=== PATIENT | female | born 1935 | race Caucasian/White ===

== ENCOUNTER 2016-07-24 16:57 | Emergency (ER) | payer MEDICARE ==
[~2016-07-24] VITALS: Ht 160 cm; Wt 50.0 kg
[~2016-07-24 16:57] MED LIST: ALPR1 PO; GLIP5 PO; LISI2.5T3 PO; POTA-243 PO; SYNT25TA PO
[2016-07-24 17:03] VITALS: BP 159/78; PULSE 108; RESP 18; TEMP 98.3; O2SAT 97
--- NOTE | 2016-07-24 17:21 | PD ---
HPI . hip pain Chief Complaint: Pain: Acute or Chronic Time Seen by Provider: 17:21 Travel History International Travel<30 days: No Contact w/Intl Traveler<30days: No Traveled to known affect area: No History of Present Illness HPI 80 yr old female with HTN, HLD, DM, anxiety, and hypothyroidism here with complaints of left-sided hip pain. Patient has had over one year worth of hip pain and sees Dr. Arce for it. She tells me that she takes Lortab regularly and has recently "chewed" them up. She tells me that she is experiencing 10 out of 10 pain in the left hip without radiation. She denies any recent falls. Of note she does have orthopedic appointment tomorrow morning. She is accompanied by her roommate Shnu. She denies any cp, nausea, vomiting, sob, or abdominal pain. 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, DR TOLD HER IT WOULDNT OBSTRUCT) Musculoskeletal: Yes (CHRONIC BACK PAIN) Neurologic: No Psychiatric: Yes Reproductive: No Respiratory: No Migraines: No Myocardial Infarction: No Radiation Therapy: No Renal Failure: No Seizures: No Sickle Cell Disease: No Sleep Apnea: No Thyroid Disease: No Ulcer: No PNEUMOCCOCAL Vaccine (Year): 1 Menopausal: Yes : 1 Miscarriage: 1 Past Surgical History Abdominal Surgery: No AICD: No Appendectomy: No Arteriovenous Shunt: No Body Medical Devices: unable to assess; patient confused; AMS Cardiac Surgery: No Section: Yes (X 1) Cholecystectomy: No Ear Surgery: No Endocrine Surgery: No Eye Surgery: No Genitourinary Surgery: No Gynecologic Surgery: Yes ( HYSTERECTOMY) Hysterectomy: Yes Insulin Pump: No Joint Replacement: No Neurologic Surgery: Yes (CERVICAL FUSION) Oral Surgery: No Pacemaker: No Thoracic Surgery: Yes (CERVICAL FUSION) Other Surgery: Yes (HYSTERCTOMY ) Social History Alcohol Use: No Tobacco Use: Yes (1 PPD) Substance Use: No Allergies-Medications (Allergen,Severity, Reaction): Coded Allergies: Codeine (Verified Allergy, Severe, 09/09/12) Bactrim (Verified Adverse Reaction, Severe, Nausea/Vomiting, 09/09/12) Reported Meds & Prescriptions Reported Meds & Active Scripts Active Reported Levothyroxine (Levothyroxine Sodium) 25 Mcg Tab 25 Mcg PO DAILY Lisinopril-Hctz 20-25 Mg Tab 1 Tab PO DAILY Alprazolam 1 Mg Tab 1 Mg PO HS Glipizide 5 Mg Tab 2.5 Mg PO BID Take 30 minutes before a meal Review of Systems General / Constitutional: No: Fever Eyes: No: Visual changes HENT: No: Headaches Cardiovascular: No: Chest Pain or Discomfort Respiratory: No: Shortness of Breath Gastrointestinal: No: Abdominal Pain Genitourinary: No: Dysuria Musculoskeletal: Positive: Pain (left hip pain) Skin: No Rash Neurologic: No: Weakness Psychiatric: No: Depression Endocrine: No: Polydipsia Hematologic/Lymphatic: No: Easy Bruising Physical Exam Narrative GENERAL: AAO x 3, no acute distress, Well-nourished, well-developed patient. SKIN: Warm and dry. No visible rashes or bruising. HEAD: Normocephalic and atraumatic. EYES: No scleral icterus. No injection or drainage. EOM intact, PERRLA ENT: No nasal drainage noted. Mucous membranes pink. Airway patent. NECK: Supple, trachea midline. No JVD. CARDIOVASCULAR: Regular rate and rhythm without murmurs, gallops, or rubs. RESPIRATORY: Breath sounds equal bilaterally. No accessory muscle use. No rhonchi or rales. GASTROINTESTINAL: Abdomen soft, non-tender, nondistended. EXTREMITIES: No cyanosis or edema. FULL ROM in bilateral hip/ no joint instability BACK: Nontender without obvious deformity. No CVA tenderness. PSYCH: AAO x 3, normal affect. Data Data Last Documented VS Vital Signs Date Time Temp Pulse Resp B/P Pulse Ox O2 Delivery O2 Flow Rate FiO2 07/24/16 17:08 106 16 07/24/16 17:03 98.3 159/78 97 Orders Tramadol (Ultram) (07/24/16 17:45) [facility] Medical Decision Making Medical Screen Exam Complete: Yes Emergency Medical Condition: Yes Medical Record Reviewed: Yes Differential Diagnosis acute on chronic hip pain, opioid dependence, less likely hip fracture, Narrative Course 80 yr old female with HTN, HLD, DM, anxiety, and hypothyroidism here with complaints of left-sided hip pain. Patient has had over one year worth of hip pain and sees Dr. Arce for it. She tells me that she takes Lortab regularly and has recently "chewed" them up. She tells me that she is experiencing 10 out of 10 pain in the left hip without radiation. She denies any recent falls. Of note she does have orthopedic appointment tomorrow morning. She is accompanied by her roommate Shun. She denies any cp, nausea, vomiting, sob, or abdominal pain. Patient seen and examined. Discussed with Dr. Colby. NO acute findings. NO bruising or signs of fracture. Normal ROM in left hip. EFORCSE: 07/17/16; filled 60 lortabs: patient states she "chewed" them up and took them around the clock. She is requesting something for pain. Tramadol in ED. Dr. Colby discussed with patient that we will treat her pain in ED. She is to f /u with ortho tomorrow. Patient verbalized understanding of instructions, questions were answered, and thanked me for their care. I advised them if their condition worsens, please return to the nearest emergency room for further care. Diagnosis Primary Impression: Chronic left hip pain Patient Instructions: General Instructions Additional Instructions: Follow up with your primary care provider. Discuss your pain with orthopedic tomorrow. Med/Other Pt SpecificInfo: No Change to Meds Disposition: 01 DISCHARGE HOME Condition: Stable April Hansen Jul 24, 2016 17:21
[2016-07-24] MEDS ORDERED: ALPR1TAB3 PO (17:41)
[2016-07-24] MEDS ORDERED: LEVO25TA4 PO (17:41)
[2016-07-24] MEDS ORDERED: GLIP5TAB8 PO (17:41)
[2016-07-24] MEDS ORDERED: LISI20TA3 PO (17:41)
[2016-07-24] MEDS ORDERED: traMADol HCL 50 MG TAB PO ONE (17:45)
[2016-07-24 17:54] VITALS: BP 152/87; PULSE 81; RESP 17; O2SAT 99
--- NOTE | 2016-07-24 19:25 | PD ---
Data Data Last Documented VS Vital Signs Date Time Temp Pulse Resp B/P Pulse Ox O2 Delivery O2 Flow Rate FiO2 07/24/16 17:54 81 17 152/87 99 Room Air 07/24/16 17:03 98.3 Orders Tramadol (Ultram) (07/24/16 17:45) MDM Supervised Visit with PETER: Yes Narrative Course The history, exam, and medical decision-making in the associated midlevel provider note were completed with my assistance. I reviewed and agree with the findings presented. I attest that I had a [id number] encounter with the patient on the same day, and personally performed and documented my assessment and findings in the medical record. *My assessment and Findings: This is an 80-year-old female who presents to the emergency department with chronic left hip pain. She is requesting pain medication. Her pain is unchanged from prior. She filled a hydrocodone prescription about 10 days ago which was a 30 day prescription and she says she' s taken at all. Patient was given a dose of tramadol and discharged home. Diagnosis Primary Impression: Chronic left hip pain Patient Instructions: General Instructions, Hip Pain (ED) Departure Forms: Tests/Procedures Additional Instruction: Follow up with your primary care provider. Discuss your pain with orthopedic tomorrow. Disposition: 01 DISCHARGE HOME Condition: Stable Tanya Colby MD Jul 24, 2016 19:25
== END 2016-07-24 18:15 | disposition home or self-care (01) ==
LOC: NEPC 16:57
DX: M25.552 Pain in left hip (principal); G89.29 Other chronic pain; M19.90 Unspecified osteoarthritis, unspecified site; J44.9 Chronic obstructive pulmonary disease, unspecified; E11.9 Type 2 diabetes mellitus without complications; Z79.84 Long term (current) use of oral hypoglycemic drugs; I10 Essential (primary) hypertension; F17.210 Nicotine dependence, cigarettes, uncomplicated
CPT/HCPCS: 99283

== ENCOUNTER 2017-09-13 22:05 | Inpatient (IN) | payer MEDICARE ==
[~2017-09-13] VITALS: Ht 162.6 cm; Wt 47.1 kg
[2017-09-13] VITALS (8 sets, daily range): BP systolic 76–115; BP diastolic 32–53; PULSE 82–96; RESP 18; TEMP 92–94; O2SAT 98–100
[~2017-09-13 22:05] MED LIST changes: -ALPR1 PO; +ALPR1TAB3 PO; -GLIP5 PO; +GLIP5TAB8 PO; +LEVO25TA4 PO; -LISI2.5T3 PO; +LISI20TA3 PO; -POTA-243 PO; -SYNT25TA PO
[2017-09-13] MEDS ORDERED: SODIUM CHLOR 0.9% 1000 ML INJ 1,000 ML IV ONE (22:30)
[2017-09-13] MEDS ORDERED: SODIUM CHLORIDE 0.9% FLUSH 10 ML FLUSH IVF PRN (22:30)
[2017-09-13 22:40] LABS: BASOPHIL % 0.5 % (0.0-2.0); EOSINOPHIL # 0.1 TH/MM3 (0-0.4); EOSINOPHIL % 0.9 % (0.0-4.0); LYMPH % 39.2 % (9.0-44.0); LYMPHOCYTE # 2.8 TH/MM3 (1.0-4.8); MEAN CELL VOLUME 104.9 FL (80.0-100.0); MEAN CORPUSCULAR HEMOGLOBIN 33.3 PG (27.0-34.0); MEAN CORPUSCULAR HGB CONC 31.7 % (32.0-36.0); MONO % 3.6 % (0.0-8.0); MONOCYTE # 0.3 TH/MM3 (0-0.9); NEUT % 55.8 % (16.0-70.0); PLATELET COUNT 193 TH/MM3 (150-450); RED BLOOD COUNT 1.25 MIL/MM3 (4.00-5.30); RED CELL DISTRIBUTION WIDTH 15.7 % (11.6-17.2); WHITE BLOOD COUNT 7.2 TH/MM3 (4.0-11.0)
[2017-09-13 22:49] LABS: HEMOGLOBIN 4.2 GM/DL (11.6-15.3)
[2017-09-13 22:50] LABS: HEMATOCRIT 13.1 % (35.0-46.0)
--- NOTE | 2017-09-13 22:54 | PD ---
HPI Chief Complaint: Code Blue Time Seen by Provider: 22:21 Travel History International Travel<30 days: No (Travel history is unable to be obtained) Contact w/Intl Traveler<30days: No History of Present Illness HPI The patient is an 82 year old female who presents to the [facility] emergency department with a history of altered mentation, shortness of breath that reportedly began 15-20 minutes prior to the arrival of ambulance services. When ambulance services arrived the patient was noted to have a GCS of 3 with a pulse in the 60s. Ambulance services reportedly did an EKG that they stated was unremarkable. The patient was noted to have O2 saturations of 82%. The patient then went into cardiopulmonary arrest. ACLS protocol was followed. The patient was noted to have a blood sugar of 85. The patient was given 2 doses of epinephrine in route to this facility while chest compressions were being provided. The patient was back in route to this facility. The patient on arrival is noted to be unresponsive with a GCS of 3. The patient's pupils are fixed and dilated. ACLS protocol was continued. The patient reportedly became pulseless at 22:00. Review of systems is unable to be obtained in this patient who arrives unresponsive. [facility] Past Medical History Narrative Medical The patient's past medical history is obtained from reviewing the patient's electronic medical record and consists of hypertension, hyperlipidemia, diabetes mellitus, anxiety disorder, hypothyroid disorder, chronic back pain, a kidney abnormality. 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 Abdominal Surgery: No AICD: No Appendectomy: No Arteriovenous Shunt: No Body Medical Devices: unable to assess; patient confused; AMS Cardiac Surgery: No Section: Yes (X 1) Cholecystectomy: No Ear Surgery: No Endocrine Surgery: No Eye Surgery: No Genitourinary Surgery: No Gynecologic Surgery: Yes ( HYSTERECTOMY) Hysterectomy: Yes Insulin Pump: No Joint Replacement: No Neurologic Surgery: Yes (CERVICAL FUSION) Oral Surgery: No Pacemaker: No Thoracic Surgery: Yes (CERVICAL FUSION) Other Surgery: Yes (HYSTERCTOMY ) Social History Alcohol Use: No Tobacco Use: Yes (1 PPD) Substance Use: No Allergies-Medications (Allergen,Severity, Reaction): Coded Allergies: codeine (Unverified Allergy, Severe, 09/13/17) sulfamethoxazole (Unverified Adverse Reaction, Severe, Nausea/Vomiting, ) trimethoprim (Unverified Adverse Reaction, Severe, Nausea/Vomiting, ) Reported Meds & Prescriptions Reported Meds & Active Scripts Active Reported Levothyroxine (Levothyroxine Sodium) 25 Mcg Tab 25 Mcg PO DAILY Lisinopril-Hctz 20-25 Mg Tab 1 Tab PO DAILY Alprazolam 1 Mg Tab 1 Mg PO HS Glipizide 5 Mg Tab 2.5 Mg PO BID Take 30 minutes before a meal Review of Systems ROS Limitations: Unresponsive Respiratory: Positive: Shortness of Breath Neurologic: Positive: Change in Mentation Physical Exam Narrative General: The patient is a well-developed, cachectic appearing female, unresponsive on arrival, pale-appearing with chest compressions being provided and being bagged by bag valve to mask Head and Neck exam: Head is normocephalic atraumatic. Eyes: extraocular motion testing is unable to be accomplished as the patient arrives unresponsive, pupils are fixed and dilated Nose: Midline septum with pale nasal mucosa Mouth: The patient had dentures in place prior to arrival that were removed and at the bedside. Moist mucus membranes. Posterior oropharynx is noted to have some bloody secretions. No tonsillar hypertrophy. Uvula midline. Airway patent. Neck: No palpable lymphadenopathy. No nuchal rigidity. No thyromegaly. Cardiovascular: No cardiac activity is auscultated. Lungs: Equal breath sounds bilaterally being assisted with bag valve mask. No wheezes, rhonchi, or rales. Abdomen: Soft, without tenderness to palpation in all 4 quadrants of the abdomen. No guarding, rebound, or rigidity. Extremities: No clubbing, cyanosis, or edema. The patient has an intraosseous access in place in the left tibia. Neurologic Exam: The patient arrives with a GCS of 3. Eyes 1. Motor 1. Verbal- 1. Skin Exam: No rash noted. Intact skin that is warm and dry. Data Data Last Documented VS Vital Signs Date Time Temp Pulse Resp B/P (MAP) Pulse Ox O2 Delivery O2 Flow Rate FiO2 09/13/17 23:25 92.8 92 18 105/50 (68) 98 Auto-Vent 09/13/17 22:10 100 Orders Orders I-Stat Profile (09/13/17 22:22) Complete Blood Count With Diff (09/13/17 22:22) Prothrombin Time / Inr (Pt) (09/13/17 22:22) Act Partial Throm Time (Ptt) (09/13/17 22:22) Type And Screen (09/13/17 22:22) Iv Access Insert/Monitor (09/13/17 22:22) Ecg Monitoring (09/13/17 22:22) Oximetry (09/13/17 22:22) Oxygen Administration (09/13/17 22:22) Sodium Chloride 0.9% Flush (Ns Flush) (09/13/17 22:30) Sodium Chlor 0.9% 1000 Ml Inj (Ns 1000 M (09/13/17 22:30) Comprehensive Metabolic Panel (09/13/17 22:26) Creatine Kinase (Cpk) (09/13/17 22:26) Ckmb (Isoenzyme) Profile (09/13/17 22:) Troponin I (09/13/17:) B-Type Natriuretic Peptide (09/13/17:) Urinalysis - C+S If Indicated (09/13/17:26) Magnesium (Mg) (09/13/17 22:26) Chest, Single Ap (09/13/17 22:) Urinary Catheter Insert/Apply (09/13/17 22:26) Brian-Gastric Tube Insert/Mon (09/13/17 22:26) Red Blood Cells (Rbc) (09/13/17 22:26) Lactic Acid (09/13/17 22:50) ^ Infusion (09/13/17 ) Norepinephrine Inj (Levophed Inj) (09/13/17 23:15) Terbutaline Inj (Brethine Inj) (09/13/17 23:15) Admit Order (Ed Use Only) (09/13/17 23:42) Labs Laboratory Tests Test 09/13/17 22:26 09/13/17 22:45 09/13/17 23:03 09/13/17 23:22 White Blood Count 7.2 TH/MM3 Red Blood Count 1.25 MIL/MM3 Hemoglobin 4.2 GM/DL Bedside Hemoglobin G/DL Hematocrit 13.1 % Bedside Hematocrit LESS THAN 15.0 % Mean Corpuscular Volume 104.9 FL Mean Corpuscular Hemoglobin 33.3 PG Mean Corpuscular Hemoglobin Concent 31.7 % Red Cell Distribution Width 15.7 % Platelet Count 193 TH/MM3 Mean Platelet Volume 7.0 FL Neutrophils (%) (Auto) 55.8 % Lymphocytes (%) (Auto) 39.2 % Monocytes (%) (Auto) 3.6 % Eosinophils (%) (Auto) 0.9 % Basophils (%) (Auto) 0.5 % Neutrophils # (Auto) 4.0 TH/MM3 Lymphocytes # (Auto) 2.8 TH/MM3 Monocytes # (Auto) 0.3 TH/MM3 Eosinophils # (Auto) 0.1 TH/MM3 Basophils # (Auto) 0.0 TH/MM3 CBC Comment AUTO DIFF Differential Comment AUTO DIFF CONFIRMED Prothrombin Time 12.7 SEC Prothromb Time International Ratio 1.3 RATIO Activated Partial Thromboplast Time 46.3 SEC Bedside Sodium 145 MMOL/L Blood Urea Nitrogen 45 MG/DL Creatinine 0.87 MG/DL Random Glucose 115 MG/DL Total Protein 3.3 GM/DL Albumin 1.3 GM/DL Calcium Level 8.2 MG/DL Magnesium Level 2.5 MG/DL Alkaline Phosphatase 47 U/L Aspartate Amino Transf (AST/SGOT) 58 U/L Alanine Aminotransferase (ALT/SGPT) 38 U/L Total Bilirubin 0.1 MG/DL Sodium Level 152 MEQ/L Potassium Level 5.2 MEQ/L Chloride Level 110 MEQ/L Carbon Dioxide Level 18.5 MEQ/L Bedside Potassium 4.9 MMOL/L Bedside Chloride 106 MMOL/L Anion Gap 24 MEQ/L Bedside Blood Urea Nitrogen 43 MG/DL Bedside Creatinine 0.8 MG/DL Estimat Glomerular Filtration Rate 62 ML/MIN Bedside Glucose 115 MG/DL Total Creatine Kinase 54 U/L Troponin I 0.03 NG/ML B-Type Natriuretic Peptide 251 PG/ML Lactic Acid Level 19.7 mmol/L Blood Gas Puncture Site LT RADIAL Blood Gas Patient Temperature 98.6 Blood Gas HCO3 8 mmol/L Blood Gas Base Excess -22.6 mmol/L Blood Gas Oxygen Saturation 96 % Arterial Blood pH 6.91 Arterial Blood Partial Pressure CO2 40 mmHg Arterial Blood Partial Pressure O2 490 mmHG Arterial Blood Oxygen Content 5.9 Vol % Arterial Blood Carboxyhemoglobin 0.2 % Arterial Blood Methemoglobin 1.6 % Blood Gas Hemoglobin 3.3 G/DL Oxygen Delivery Device VENTILATOR Blood Gas Ventilator Setting SEE COMMENT Blood Gas Inspired Oxygen 100 % MDM Medical Decision Making Medical Screen Exam Complete: Yes Emergency Medical Condition: Yes Medical Record Reviewed: Yes Interpretation(s) Last Impressions Chest X-Ray 09/13/172225 Signed Impressions: Service Date/Time: Wednesday, September 13, 2017 23:12 - CONCLUSION: Mild left mid and upper lung consolidation. Lungs otherwise clear. Appropriate position of the endotracheal tube and nasogastric tube. Amrit Ansari MD Differential Diagnosis Hemorrhagic shock, versus cardiac arrhythmia, versus acute coronary syndrome, versus respiratory failure, versus aspiration Narrative Course During the course of the patient's emergency department visit, the patient was placed on a cardiac technologist with oximetry and ACLS protocol was continued. The patient had IV access. The patient was intubated by me. The patient did not require any sedation for intubation. The patient was noted to have blood in the airway which was suctioned by respiratory therapy. The patient was given 1 amp of bicarb in addition to the doses of epinephrine every 3-5 minutes. The patient was given normal saline 1 L IV fluid bolus on pressure bag. The patient had a return of spontaneous circulation. The patient's initial blood pressure was 100 systolic. The patient had blood work sent for analysis including an i-STAT with creatinine. An ABG was ordered. The patient's blood pressure began to drop again. The patient was started on Levophed. The patient 's i-STAT with creatinine and ABG revealed a low hemoglobin. Emergency release blood was ordered. 4 units were started as the patient's hemoglobin on ABG was 3. An EKG was done after the patient had a return of spontaneous circulation which revealed an irregular rhythm that appeared to be atrial fibrillation with RVR heart rate in the 140's., QRS duration is 114 ms, QTC [address]-T wave abnormalities, no acute ST segment elevation. The patient's blood pressure began to drop after the initial blood pressure of 100 systolic and Levophed was started. An OG tube was placed in the patient and bright red blood was removed/suctioned , approximately 400 cc. The patient was started on Protonix by bolus and drip, octreotide 50 mcg bolus and drip. The patient's laboratory studies were reviewed and remarkable for a white count of 7.2, hemoglobin 4.2, platelets 193 with a normal differential, CMP is remarkable for a sodium of 152, potassium 5.2, chloride 110, CO2 18.5, anion gap 24, BUN 45, creatinine 0.87, GFR 62, glucose 115, calcium 8.2, total bilirubin 0.1, AST 58, cardiac enzymes within normal limits, BNP is 251, albumin 1.3. PT 12.7, INR 1.3, PTT 46.3, lactic acid 19.7. Radiology studies were reviewed and remarkable for a chest x-ray that shows a mild left mid and upper lung consolidation, lungs otherwise clear, appropriate position of the endotracheal tube and orogastric tube. The patient's blood pressure dropped again and the patient was given a second liter of normal saline IV fluids. The patient was given 4 units of FFP as the patient had oozing from multiple sites suspicious for DIC. The patient was given tranexamic acid 1 g IV. The patient's case was discussed with the kitchen chef, Dr. Watts. The patient was admitted to the hospital in critical condition and sent to a bed under the care of the kitchen chef's service. Critical Care Narrative Aggregate critical care time was 44 minutes. Time to perform other separately billable procedures was not included in the critical care time. My time did not include minutes spent treating any other patients simultaneously or on activities that did not directly contribute to the patient's treatment. The services I provided to this patient were to treat and/or prevent clinically significant deterioration that could result in: [-] I provided critical care services requiring my management, as noted below: Chart data review, documentation time, medication orders and management, vital sign assessments/reviewing monitor data, ordering and reviewing lab tests, ordering and interpreting/reviewing x-rays and diagnostic studies, care of the patient and discussion of the patient with the admitting physicians. Procedures Procedure Narrative Cardiac ultrasound was done during cardiopulmonary arrest to assess for cardiac activity. Initially there was no cardiac activity noted, however after further resuscitation the patient had recurrence of cardiac activity by ultrasound which was confirmed with palpable pulse and blood pressure. The patient was put in optimal position for the procedure. The patient was intubated with an 8 cuffed endotracheal tube. Tube placement was confirmed by visualization of the tube and balloon passing through the cords, capnometry and subsequent chest x-ray. Breath sounds were equal and well aerated bilaterally postintubation. No breath sounds over stomach. Patient tolerated procedure well. CENTRAL VENOUS LINE: The site was prepped with chlorhexidine and sterilely draped. It was infiltrated with 1% lidocaine plain. The deep vein was cannulated using normal Seldinger technique. A triple lumen central line was placed in the right femoral vein site and secured with a central line lock. The site was sterilely dressed. The patient tolerated the procedure well. Physician Communication Physician Communication The patient's case including history, pertinent physical examination findings, and laboratory studies were discussed with Dr. Watts. It was agreed that the patient would be admitted to the kitchen chef service. Diagnosis Primary Impression: Cardiopulmonary arrest with successful resuscitation Additional Impression: GI bleed Qualified Codes: K92.2 - Gastrointestinal hemorrhage, unspecified Admitting Information Admitting Physician Requests: Admit Corina Templeton MD Sep 13, 2017 22:54
[2017-09-13 22:59] LABS: INTERNATIONAL NORMALIZED RATIO 1.3 RATIO; PROTHROMBIN TIME - PATIENT 12.7 SEC (9.8-11.6)
[2017-09-13 23:08] LABS: ALBUMIN 1.3 GM/DL (3.4-5.0); ALT (GPT) 38 U/L (10-53); AST (GOT) 58 U/L (15-37); BICARBONATE 18.5 MEQ/L (21.0-32.0); BLOOD UREA NITROGEN 45 MG/DL (7-18); CALCIUM 8.2 MG/DL (8.5-10.1); CHLORIDE 110 MEQ/L (98-107); CREATININE 0.87 MG/DL (0.50-1.00); GLOMERULAR FILTRATION RATE 62 ML/MIN (>89); GLUCOSE,RANDOM 115 MG/DL (74-106); MAGNESIUM 2.5 MG/DL (1.5-2.5); SODIUM (NA) 152 MEQ/L (136-145)
[2017-09-13 23:12] LABS: ALKALINE PHOSPHATASE 47 U/L (45-117); TOTAL BILIRUBIN ADULT 0.1 MG/DL (0.2-1.0); TOTAL PROTEIN 3.3 GM/DL (6.4-8.2); TROPONIN I 0.03 NG/ML (0.02-0.05)
[2017-09-13] MEDS ORDERED: TERBUTALINE INJ 1 MG/ML AMP SQ PRN (23:15)
[2017-09-13] MEDS: NOREPINEPHRINE INJ 4 MG in SODIUM CHLOR 0.9% 250 ML INJ 246 ML IV PRN (23:19)
--- NOTE | 2017-09-13 23:32 | RADRPT ---
EXAM DATE/TIME: 09/13/2017 23:12 [facility] COMPARISON: CHEST SINGLE AP, June 06, 2012, 17:02. INDICATIONS : Post intubation. MEDICAL HISTORY : None. SURGICAL HISTORY : None. ENCOUNTER: Initial ACUITY: 1 day PAIN SCORE: 0/10 LOCATION: Bilateral chest FINDINGS: Mild patchy airspace opacities are seen laterally in the left upper lobe. Tiny bilateral pleural effu sions are present. No pneumothorax. Heart size stable, normal. Endotracheal tube tip is approximately 3.5 cm above the naman. There is a nasogastric tube coursing into the stomach. CONCLUSION: Mild left mid and upper lung consolidation. Lungs otherwise clear. Appropriate position of the endotr acheal tube and nasogastric tube. Amrit Ansari MD on September 13, 2017 at 23:30 Board Certified Radiologist. This report was verified electronically.
[2017-09-14] VITALS (20 sets, daily range): BP systolic 100–173; BP diastolic 45–89; PULSE 80–130; RESP 18–30; TEMP 93–99; O2SAT 98–100
[2017-09-14] MEDS ORDERED: OCTREOTIDE INJ 50 MCG/ML AMP IV PUSH ONE
[2017-09-14] MEDS ORDERED: PANTOPRAZOLE INJ 80 MG in SODIUM CHLORIDE 0.9% INJ 35 ML IV ONE ×2
[2017-09-14] MEDS: OCTREOTIDE INJ 500 MCG in SODIUM CHLORID 0.9% 500 ML INJ 499.5 ML IV SCH ×2 (00:56→12:14)
[2017-09-14] MEDS ORDERED: SODIUM CHLOR 0.9% 250 ML INJ 250 ML IV ONE ×3 (01:15→01:30)
[2017-09-14] MEDS ORDERED: PHYTONADIONE INJ 10 MG in SODIUM CHLORIDE 0.9% INJ 50 ML IV ONE (01:30)
[2017-09-14] MEDS ORDERED: TRANEXAMIC ACID INJ 1,000 MG in SODIUM CHLORIDE 0.9% INJ 100 ML IV ONE (01:30)
[2017-09-14] MEDS: PANTOPRAZOLE INJ 80 MG in SODIUM CHLORIDE 0.9% INJ 100 ML IV SCH ×2 (01:34→12:14)
--- NOTE | 2017-09-14 01:53 | HHI.HP ---
HPI Service Critical Care Medicine Primary Care Physician Unknown Admission Diagnosis PostCode, GI Bleed Diagnosis: Travel History International Travel<30 Days: No Contact w/Intl Traveler <30 Da: No Traveled to Known Affected Are: No History of Present Illness 82-year-old female with past medical history of diabetes, hypertension , hypothyroidism, chronic pain who presented to [facility] emergency department with PEA cardiac arrest. [facility] was summoned for decreased mental status and shortness of breath. When they arrived patient had GCS of 3 and pulse in the 60s. Subsequently the patient had PEA cardiac arrest. She received epinephrine 2 per EVAC. ACLS was continued upon arrival. Patient's pupils were fixed and dilated. Patient was intubated. There was ROSC after roughly 20 minutes of CPR. Hemoglobin was 3.3. She received 4 units of emergency release blood and right femoral central venous line was placed. Lactic acid was 19. PH was 6.9. OG tube was inserted and she had large amount of dark bloody output. There were also bloody secretions in the endotracheal tube. Review of Systems ROS Limitations: Intoxication Past Family Social History Allergies: Coded Allergies: codeine (Unverified Allergy, Severe, 09/13/17) sulfamethoxazole (Unverified Adverse Reaction, Severe, Nausea/Vomiting, ) trimethoprim (Unverified Adverse Reaction, Severe, Nausea/Vomiting, ) Past Medical History Diabetes Hypertension COPD Hypothyroidism Osteoarthritis Anxiety GERD Remote seizure activity Chronic low back pain Past Surgical History section Hysterectomy Cervical fusion Reported Medications Lisinopril/HCTZ 1 tab p.o. daily Xanax 1 mg p.o. daily Glipizide 2.5 mg p.o. twice daily Synthroid 25 mcg p.o. daily Family History Unable to obtain from patient due to clinical condition Social History Smokes a pack of cigarettes per day. No alcohol or illicit drug use reported in the EMR. Physical Exam Vital Signs Vital Signs Date Time Temp Pulse Resp B/P (MAP) Pulse Ox O2 Delivery O2 Flow Rate FiO2 09/13/17 23:46 93.0 82 18 115/53 (73) 98 Auto-Vent 09/13/17 23:25 92.8 92 18 105/50 (68) 98 Auto-Vent 09/13/17 23:19 88 100/68 09/13/17 23:10 92.3 90 18 86/44 (58) 98 Auto-Vent 09/13/17 23:05 92.0 88 18 82/38 (53) 98 Auto-Vent 09/13/17 22:55 94.0 88 18 80/34 (49) 98 Auto-Vent 09/13/17 22:54 18 09/13/17 22:52 97 Auto-Vent 09/13/17 22:45 96 18 76/32 (47) 98 Auto-Vent 09/13/17 22:10 100 100 Physical Exam GENERAL: Very thin chronically ill-appearing female who is orotracheally intubated. SKIN: Skin is very pale appearing. Lower extremities are very pale and mottled , cool HEAD: Atraumatic. Normocephalic. EYES: 2 mm and nonreactive bilaterally. No corneal reflex.. Conjunctive is extremely pale peeling. ENT: Pale mucous membranes with dark blood in oropharynx. NECK: Trachea midline. Jugular veins flat CARDIOVASCULAR: Irregular, tachycardic with rate in the 130s-140s.. No murmurs rubs or gallops appreciated. RESPIRATORY: Orotracheally intubated, overbreathing the vent. Rhonchi bilaterally. No wheeze. GASTROINTESTINAL: Abdomen distended, unable to appreciate tenderness. No appreciable rebound. Absent bowel sounds. MUSCULOSKELETAL: Extremities without clubbing, cyanosis, or edema. NEUROLOGICAL: Eyes appear to open intermittently. Pupils are not reactive. No corneal reflex. No gag. No cough. Initially no motor response to deep noxious stimuli. She later was moving her upper extremities some. Laboratory Laboratory Tests Test 09/13/17 22:26 09/13/17 22:45 09/13/17 23:03 09/13/17 23:22 White Blood Count 7.2 Red Blood Count 1.25 Hemoglobin 4.2 Bedside Hemoglobin Hematocrit 13.1 Bedside Hematocrit LESS THAN 15.0 Mean Corpuscular Volume 104.9 Mean Corpuscular Hemoglobin 33.3 Mean Corpuscular Hemoglobin Concent 31.7 Red Cell Distribution Width 15.7 Platelet Count 193 Mean Platelet Volume 7.0 Neutrophils (%) (Auto) 55.8 Lymphocytes (%) (Auto) 39.2 Monocytes (%) (Auto) 3.6 Eosinophils (%) (Auto) 0.9 Basophils (%) (Auto) 0.5 Neutrophils # (Auto) 4.0 Lymphocytes # (Auto) 2.8 Monocytes # (Auto) 0.3 Eosinophils # (Auto) 0.1 Basophils # (Auto) 0.0 CBC Comment AUTO DIFF Differential Comment AUTO DIFF CONFIRMED Prothrombin Time 12.7 Prothromb Time International Ratio 1.3 Activated Partial Thromboplast Time 46.3 Bedside Sodium 145 Blood Urea Nitrogen 45 Creatinine 0.87 Random Glucose 115 Total Protein 3.3 Albumin 1.3 Calcium Level 8.2 Magnesium Level 2.5 Alkaline Phosphatase 47 Aspartate Amino Transf (AST/SGOT) 58 Alanine Aminotransferase (ALT/SGPT) 38 Total Bilirubin 0.1 Sodium Level 152 Potassium Level 5.2 Chloride Level 110 Carbon Dioxide Level 18.5 Bedside Potassium 4.9 Bedside Chloride 106 Anion Gap 24 Bedside Blood Urea Nitrogen 43 Bedside Creatinine 0.8 Estimat Glomerular Filtration Rate 62 Bedside Glucose 115 Total Creatine Kinase 54 Troponin I 0.03 B-Type Natriuretic Peptide 251 Lactic Acid Level 19.7 Blood Gas Puncture Site LT RADIAL Blood Gas Patient Temperature 98.6 Blood Gas HCO3 8 Blood Gas Base Excess -22.6 Blood Gas Oxygen Saturation 96 Arterial Blood pH 6.91 Arterial Blood Partial Pressure CO2 40 Arterial Blood Partial Pressure O2 490 Arterial Blood Oxygen Content 5.9 Arterial Blood Carboxyhemoglobin 0.2 Arterial Blood Methemoglobin 1.6 Blood Gas Hemoglobin 3.3 Oxygen Delivery Device VENTILATOR Blood Gas Ventilator Setting SEE COMMENT Blood Gas Inspired Oxygen 100 Result Diagram: 09/13/17222509/13/172225 Caprini VTE Risk Assessment Caprini VTE Risk Assessment: Mod/High Risk (score >= 2) VTE Pharm Contraindication: Active bleeding Caprini Risk Assessment Model Point Value = 1 Point Value = 2 Point Value = 3 Point Value = 5 Age 41-60 Minor surgery BMI > 25 kg/m2 Swollen legs Varicose veins or History of unexplained or recurrent spontaneous Oral contraceptives or hormone replacement Sepsis (< 1 month) Serious lung disease, including pneumonia (< 1 month) Abnormal pulmonary function Acute myocardial infarction Congestive heart failure (< 1 month) History of inflammatory bowel disease Medical patient at bed rest Age 61-74 Arthroscopic surgery Major open surgery (> 45 min) Laparoscopic surgery (> 45 min) Malignancy Confined to bed (> 72 hours) Immobilizing plaster cast Central venous access Age >= 75 History of VTE Family history of VTE Factor V Leiden Prothrombin [id number] Lupus anticoagulant Anticardiolipin antibodies Elevated serum homocysteine Heparin-induced thrombocytopenia Other congenital or acquired thrombophilia Stroke (< 1 month) Elective arthroplasty Hip, pelvis, or leg fracture Acute spinal cord injury (< 1 month) Prophylaxis Regimen Total Risk Factor Score Risk Level Prophylaxis Regimen 0-1 Low Early ambulation 2 Moderate Order ONE of the following: *Sequential Compression Device (SCD) *Heparin 5000 units SQ BID 3-4 Higher Order ONE of the following medications: *Heparin 5000 units SQ TID *Enoxaparin/Lovenox 40 mg SQ daily (WT < 150 kg, CrCl > 30 mL/min) *Enoxaparin/Lovenox 30 mg SQ daily (WT < 150 kg, CrCl > 10-29 mL/min) *Enoxaparin/Lovenox 30 mg SQ BID (WT < 150 kg, CrCl > 30 mL/min) AND/OR *Sequential Compression Device (SCD) 5 or more Highest Order ONE of the following medications: *Heparin 5000 units SQ TID (Preferred with Epidurals) *Enoxaparin/Lovenox 40 mg SQ daily (WT < 150 kg, CrCl > 30 mL/min) *Enoxaparin/Lovenox 30 mg SQ daily (WT < 150 kg, CrCl > 10-29 mL/min) *Enoxaparin/Lovenox 30 mg SQ BID (WT < 150 kg, CrCl > 30 mL/min) AND *Sequential Compression Device (SCD) Assessment and Plan Assessment and Plan NEURO: Acute anoxic encephalopathy Not on any sedation at this time. Fentanyl as needed for pain. RESP: Acute respiratory failure COPD Tobacco PRVC TV 600 R 18 IT 1 PEEP 5 FIO2 100. Wean FiO2 for sats greater than 92%. DuoNeb every 6 hours Albuterol every 2 hours as needed. Solu-Medrol added later due to wheezing. CV: PEA cardiac arrest, estimated 30 minutes duration Hemorrhagic shock Essential hypertension Received 1 L normal saline in the emergency department. Transfuse 4 units of emergency release blood. Ongoing resuscitation with 4 units FFP 1 unit platelets. D5 100 mg once a bicarb per liter at 120 mL/h GI: GI bleed History of GERD Orogastric tube in place to low intermittent wall suction. Protonix and octreotide drip. Serial hemoglobin every 6 hours. Transfusion of blood products and management of coagulopathy as per below. Not presently stable enough for CT abdomen and pelvis. Gastroenterology consult for possible scope if patient is able to be stabilized adequately. She does have apparent anoxia and severe metabolic acidemia with extremely poor prognosis so transition to comfort measures rather than aggressive approach would be appropriate if we can make contact with family to determine patient wishes. FEN/RENAL: Acute kidney injury with anuria Ferguson in place. Monitor intake and output. Monitor electrolytes and address as indicated. ID: Treat empirically for bowel translocation/ diverticulitis with Zosyn 3.375 IV every 6 hours. We will need to adjust dosing based on follow-up creatinine clearance HEME: Acute blood loss anemia with hemorrhagic shock Consumptive coagulopathy Transfused 4 units packed red cells, 4 units FFP, 1 unit platelets. Given vitamin K 10 mg IV, given tranexamic acid 1 g IV. Monitor coags and fibrinogen. Hemoglobin every 6 hours. Calcium chloride 1 g IV Rewarming. ENDO: Diabetes mellitus Hold glipizide. Monitor bedside glucose every 6 hours initiate low-dose insulin sliding scale as indicated. Hold Synthroid for now. PROPH: No SCDs for DVT prophylaxis at this time due to severely diminished peripheral perfusion from profound blood loss. Avoid Pharmacologic DVT prophylaxis due to acute hemorrhagic shock. Protonix drip as per above ACCESS: Right femoral art line placed in 16 #1 Called 3 different numbers in attempt to reach patient's daughter. There is no answer. Prior records indicate that she had an advanced directive but I am unable to locate the scanned document in [facility] [employer] I contacted patient's daughter, Tamika Chakraborty, at the following numbers (multiple times) and there was no answer: [phone] (home) [phone] (cell) [phone] These numbers were provided by the patient's male roommate. Presently full code. Prognosis poor Discussed with Dr. Templeton Critical care time 60 minutes exclusive of separately billable procedures Teresa Watts MD Sep 14, 2017 01:53
[2017-09-14] MEDS ORDERED: MISCELLANEOUS NURSING INFORMATION XX SCH (02:00)
[2017-09-14] MEDS ORDERED: ONDANSETRON HCL 4 MG/2 ML VIAL IV PUSH PRN (02:00)
[2017-09-14] MEDS ORDERED: RESP: ALBUTEROL 2.5 MG/3 ML NEB (PRN) INH (02:00)
[2017-09-14] MEDS ORDERED: CHLORHEXIDINE GLUCONATE 2 % 1 PACK (2 CLOTHS) TOP PRN (02:00)
[2017-09-14] MEDS ORDERED: SODIUM CHLORIDE 0.9% FLUSH 10 ML FLUSH IV FLUSH PRN (02:00)
[2017-09-14] MEDS ORDERED: CHLORHEXIDINE GLUCONATE 2 % 1 PACK (2 CLOTHS) TOP SCH (04:00)
[2017-09-14] MEDS: RESP: ALBUTEROL 2.5 MG/IPRATROPIUM 0.5 MG NEB (SCH) INH ×3 (04:00→16:00)
[2017-09-14] MEDS ORDERED: SODIUM BICARBONATE 8.4% INJ 50 MEQ/50 ML SYR IV PUSH ONE ×2 (04:00→05:30)
[2017-09-14 04:53] LABS: HEMOGLOBIN 10.7 GM/DL (11.6-15.3)
[2017-09-14] MEDS ORDERED: CALCIUM CHLORIDE INJ 1 GM in SODIUM CHLORIDE 0.9% INJ 100 ML IV ONE (05:00)
[2017-09-14 05:10] LABS: INTERNATIONAL NORMALIZED RATIO 1.3 RATIO; PROTHROMBIN TIME - PATIENT 13.6 SEC (9.8-11.6)
[2017-09-14] MEDS: SODIUM BICARBONATE 8.4% INJ 100 MEQ in DEXTROSE 5% IN WATE 1000ML INJ 1,000 ML IV SCH ×4 (05:47→14:35)
[2017-09-14] MEDS: NOREPINEPHRINE INJ 4 MG in SODIUM CHLOR 0.9% 250 ML INJ 246 ML IV PRN (05:50)
[2017-09-14] MEDS ORDERED: CHLORHEXIDINE 0.12% (ORAL KIT) 15 ML CUP MT SCH (08:00)
[2017-09-14] MEDS ORDERED: SODIUM BICARBONATE 8.4% INJ 50 ML ONE (08:18)
[2017-09-14] MEDS: methylPREDNISolone SOD SUCC 125 MG/2 ML VIAL IV PUSH SCH ×2 (08:37→14:34)
[2017-09-14] MEDS ORDERED: SODIUM BICARBONATE 8.4% INJ 50 MEQ/50 ML SYR IV ONE (09:00)
[2017-09-14] MEDS ORDERED: SODIUM CHLORIDE 0.9% FLUSH 10 ML FLUSH IV FLUSH SCH (09:00)
[2017-09-14] MEDS ORDERED: MIDAZOLAM HCL 5 MG/ML VIAL (1 ML) IV ONE (09:30)
[2017-09-14] MEDS ORDERED: ROCURONIUM INJ 50 MG/5 ML VIAL IV ONE (09:30)
--- NOTE | 2017-09-14 09:40 | PD.CONS ---
HPI History of Present Illness This is a 82 year old female who presented with AMS, SOB. After ambulance arrived she had cardiopulmonary arrest, ACLS protocol initiated. Pt arrived unresponsive. GI consulted for GIB. SHe is having maroon and coffeeground output from NGT and has just had liquid maroon stool. Per RN pt's daughter is in [place] and daughter's has no way to contact her. (Adelaide Bruce) PFSH Past Medical History per EMR: OA anxiety DM HLD HTN abnormal kidney back pain Past Surgical History c section hysterectomy cervical fusion (Adelaide Bruce) Coded Allergies: codeine (Unverified Allergy, Severe, 09/13/17) sulfamethoxazole (Unverified Adverse Reaction, Severe, Nausea/Vomiting, ) trimethoprim (Unverified Adverse Reaction, Severe, Nausea/Vomiting, ) Family History unk Social History per EMR smokes 1ppd (Adelaide Bruce) Review of Systems noncontributory (Adelaide Bruce) GI Exam Vitals I&O Vital Signs Date Time Temp Pulse Resp B/P (MAP) Pulse Ox O2 Delivery O2 Flow Rate FiO2 09/14/17 07:59 100 40 09/14/17 05:50 109 09/14/17 05:45 109 109/88 09/14/17 04:00 100 80 09/14/17 04:00 100 100 09/14/17 04:00 95.2 98 161/88 (112) 09/14/17 03:07 94.3 94 21 138/74 100 09/14/17 03:00 94.3 95 18 137/68 (91) 98 Auto-Vent 09/14/17 02:31 93.7 97 22 106/70 98 09/14/17 02:30 94.0 90 18 106/70 (82) 98 Auto-Vent 09/14/17 02:28 93.7 97 19 106/72 98 09/14/17 02:20 93.6 100 30 147/70 100 09/14/17 02:00 93.4 98 18 140/60 (86) 98 Auto-Vent 09/14/17 01:30 93.2 88 18 142/63 (89) 98 Auto-Vent 09/14/17 01:00 93.2 96 18 124/60 (81) 98 Auto-Vent 09/14/17 00:30 93.0 80 18 100/45 (63) 98 Auto-Vent 09/14/17 00:00 93.0 82 18 122/57 (78) 98 Auto-Vent 09/13/17 23:46 93.0 82 18 115/53 (73) 98 Auto-Vent 09/13/17 23:25 92.8 92 18 105/50 (68) 98 Auto-Vent 09/13/17 23:19 88 100/68 09/13/17 23:10 92.3 90 18 86/44 (58) 98 Auto-Vent 09/13/17 23:05 92.0 88 18 82/38 (53) 98 Auto-Vent 09/13/17 22:55 94.0 88 18 80/34 (49) 98 Auto-Vent 09/13/17 22:54 18 09/13/17 22:52 97 Auto-Vent 09/13/17 22:45 96 18 76/32 (47) 98 Auto-Vent 09/13/17 22:10 100 100 I/O 09/13/17 09/13/17 09/13/17 09/14/17 09/14/17 09/14/17 07:00 15:00 23:00 07:00 15:00 23:00 Intake Total 810 ml Output Total 0 ml Balance 810 ml FFP 621 ml Platelets 189 ml Output Urine Total 0 ml Gastric Drainage Total 0 ml Imaging Last Impressions Chest X-Ray 09/13/176 Signed Impressions: Service Date/Time: Wednesday, September 13, 2017 23:12 - CONCLUSION: Mild left mid and upper lung consolidation. Lungs otherwise clear. Appropriate position of the endotracheal tube and nasogastric tube. Amrit Ansari MD Laboratory Test 09/13/17 22:26 09/13/17 22:45 09/13/17 23:03 09/13/17 23:22 White Blood Count 7.2 TH/MM3 Red Blood Count 1.25 MIL/MM3 Hemoglobin 4.2 GM/DL Bedside Hemoglobin G/DL Hematocrit 13.1 % Bedside Hematocrit LESS THAN 15.0 % Mean Corpuscular Volume 104.9 FL Mean Corpuscular Hemoglobin 33.3 PG Mean Corpuscular Hemoglobin Concent 31.7 % Red Cell Distribution Width 15.7 % Platelet Count 193 TH/MM3 Mean Platelet Volume 7.0 FL Neutrophils (%) (Auto) 55.8 % Lymphocytes (%) (Auto) 39.2 % Monocytes (%) (Auto) 3.6 % Eosinophils (%) (Auto) 0.9 % Basophils (%) (Auto) 0.5 % Neutrophils # (Auto) 4.0 TH/MM3 Lymphocytes # (Auto) 2.8 TH/MM3 Monocytes # (Auto) 0.3 TH/MM3 Eosinophils # (Auto) 0.1 TH/MM3 Basophils # (Auto) 0.0 TH/MM3 CBC Comment AUTO DIFF Differential Comment AUTO DIFF CONFIRMED Prothrombin Time 12.7 SEC Prothromb Time International Ratio 1.3 RATIO Activated Partial Thromboplast Time 46.3 SEC Bedside Sodium 145 MMOL/L Blood Urea Nitrogen 45 MG/DL Creatinine 0.87 MG/DL Random Glucose 115 MG/DL Total Protein 3.3 GM/DL Albumin 1.3 GM/DL Calcium Level 8.2 MG/DL Magnesium Level 2.5 MG/DL Alkaline Phosphatase 47 U/L Aspartate Amino Transf (AST/SGOT) 58 U/L Alanine Aminotransferase (ALT/SGPT) 38 U/L Total Bilirubin 0.1 MG/DL Sodium Level 152 MEQ/L Potassium Level 5.2 MEQ/L Chloride Level 110 MEQ/L Carbon Dioxide Level 18.5 MEQ/L Bedside Potassium 4.9 MMOL/L Bedside Chloride 106 MMOL/L Anion Gap 24 MEQ/L Bedside Blood Urea Nitrogen 43 MG/DL Bedside Creatinine 0.8 MG/DL Estimat Glomerular Filtration Rate 62 ML/MIN Bedside Glucose 115 MG/DL Total Creatine Kinase 54 U/L Troponin I 0.03 NG/ML B-Type Natriuretic Peptide 251 PG/ML Lactic Acid Level 19.7 mmol/L Blood Gas Puncture Site LT RADIAL Blood Gas Patient Temperature 98.6 Blood Gas HCO3 8 mmol/L Blood Gas Base Excess -22.6 mmol/L Blood Gas Oxygen Saturation 96 % Arterial Blood pH 6.91 Arterial Blood Partial Pressure CO2 40 mmHg Arterial Blood Partial Pressure O2 490 mmHG Arterial Blood Oxygen Content 5.9 Vol % Arterial Blood Carboxyhemoglobin 0.2 % Arterial Blood Methemoglobin 1.6 % Blood Gas Hemoglobin 3.3 G/DL Oxygen Delivery Device VENTILATOR Blood Gas Ventilator Setting SEE COMMENT Blood Gas Inspired Oxygen 100 % Test 09/14/17 03:26 09/14/17 03:30 09/14/17 04:20 09/14/17 04:30 Fibrinogen 283 mg/dL Hemoglobin 10.7 GM/DL Hematocrit 32.0 % Blood Gas Puncture Site CENTRAL LINE Blood Gas Patient Temperature 98.6 Venous Blood pH 6.98 Venous Blood Partial Pressure CO2 59 mmHg Venous Blood Partial Pressure O2 58 mmHg Venous Blood HCO3 13 mmol/L Venous Blood Oxygen Saturation 83 % Venous Blood Oxygen Content 12.7 Vol % Venous Blood Base Excess -16.3 mmol/L Oxygen Delivery Device VENTILATOR Blood Gas Ventilator Setting 20/500/5PEEP Blood Gas Inspired Oxygen 80 % Test 09/14/17 04:42 09/14/17 07:40 Prothrombin Time 13.6 SEC Prothromb Time International Ratio 1.3 RATIO Activated Partial Thromboplast Time 36.6 SEC Lactic Acid Level 12.4 mmol/L Troponin I 0.73 NG/ML Blood Gas Puncture Site LT RADIAL Blood Gas Patient Temperature 98.6 Blood Gas HCO3 15 mmol/L Blood Gas Base Excess -11.8 mmol/L Blood Gas Oxygen Saturation 97 % Arterial Blood pH 7.16 Arterial Blood Partial Pressure CO2 45 mmHg Arterial Blood Partial Pressure O2 341 mmHg Arterial Blood Oxygen Content 15.9 Vol % Arterial Blood Carboxyhemoglobin 0.4 % Arterial Blood Methemoglobin 2.0 % Blood Gas Hemoglobin 11.1 G/DL Oxygen Delivery Device VENTILATOR Blood Gas Ventilator Setting Blood Gas Inspired Oxygen 60 % Date/Time Source Procedure Growth Status 09/14/17 02:20 Sputum Endotracheal Gram Stain Pending Received 09/14/17 02:20 Sputum Endotracheal Sputum Culture Pending Received Physical Examination HEENT: normocephalic; atraumatic; no jaundice. CHEST: Chest is clear to auscultation and percussion. CARDIAC: tachy ABDOMEN: Soft, distended, no hepatosplenomegaly;BS faint EXTREMITIES: No clubbing, cyanosis, or edema. SKIN: Normal; no rash; no jaundice. LENS GENERATOR: sedated on vent, unresponsive (Adelaide Bruce) Assessment and Plan Plan ASSESSMENT - anemia, GIB- hgb 4.2 on admission. coffee ground output, liquid maroon stool. odor of GIB. receiving FFP, PLT. blood transfusing. palliative care consult is pending, pts daughter is out of [place] and cannot be contacted. contact made with pts . unclear who would consent. stat HH pending, abd US pending. 1435 - d/w palliative care. pts daughter contacted and does not want any procedures. withdrawal pending. PLAN - await palliative care consult - NPO - stat bleed scan, CT if/when pt stable enough - NGT to LIWS - monitor labs - supportive care - GI will sign off. please reconsult if needed pt seen by myself and Dr Cruz and this note is on her behalf (Adelaide Bruce) Physician Comments seen, examined earlier in the day us noted-large AAA daughter decided to withdraw care for now call us as needed (Candy Cruz MD) Adelaide Bruce Sep 14, 2017 09:40 Candy Cruz MD Sep 14, 2017 16:31
--- NOTE | 2017-09-14 11:40 | RADRPT ---
EXAM DATE/TIME: 09/14/2017 10:45 [facility] COMPARISON: No previous studies available for comparison. INDICATIONS : Gastrointestinal bleed. MEDICAL HISTORY : Hypertension. Chronic obstructive pulmonary disease. Diabetes mellitus type 2. Osteoporosis. Kidney s tone LT. Anxiety. SURGICAL HISTORY : Fusion, cervical. Hysterectomy. section. ENCOUNTER: Initial ACUITY: 2 days PAIN SCORE: Nonresponsive. LOCATION: Bilateral upper quadrant MEASUREMENTS: LIVER: 14.9 cm length COMMON DUCT: 8 mm RIGHT KIDNEY: 9.9 x 4.5 x 4.7 cm LEFT KIDNEY: 8.9 x 4.1 x 5.3 cm SPLEEN: 7.3 cm length AORTA: 2.9cm maximal FINDINGS: LIVER: Normal echotexture without focal lesion or ductal dilatation. COMMON DUCT: 8 mm common duct GALLBLADDER: Gallstones with distended gallbladder. PANCREAS: The visualized portions are within normal limits. RIGHT KIDNEY: No hydronephrosis, stone or mass. LEFT KIDNEY: 1.2 cm stone lower pole without obstruction. SPLEEN: No focal lesion. AORTA: 5.1 cm abdominal aortic aneurysm. IVC: Within normal limits. CONCLUSION: Gallstones without common duct 5.1 cm dominant aneurysm Nonobstructing stone lower pole left kidney. Peter Mendez MD FACR on September 14, 2017 at 11:37 Board Certified Radiologist. This report was verified electronically.
[2017-09-14 12:53] LABS: AUTOMATED NEUTROPHIL # 11.7 TH/MM3 (1.8-7.7); BASOPHIL % 0.3 % (0.0-2.0); HEMATOCRIT 31.6 % (35.0-46.0); HEMOGLOBIN 10.9 GM/DL (11.6-15.3); LYMPH % 4.6 % (9.0-44.0); LYMPHOCYTE # 0.6 TH/MM3 (1.0-4.8); MEAN CELL VOLUME 88.4 FL (80.0-100.0); MEAN CORPUSCULAR HEMOGLOBIN 30.4 PG (27.0-34.0); MEAN CORPUSCULAR HGB CONC 34.4 % (32.0-36.0); MEAN PLATELET VOLUME 7.1 FL (7.0-11.0); MONO % 2.2 % (0.0-8.0); MONOCYTE # 0.3 TH/MM3 (0-0.9); NEUT % 92.9 % (16.0-70.0); PLATELET COUNT 196 TH/MM3 (150-450); RED BLOOD COUNT 3.57 MIL/MM3 (4.00-5.30); RED CELL DISTRIBUTION WIDTH 16.9 % (11.6-17.2); WHITE BLOOD COUNT 12.6 TH/MM3 (4.0-11.0)
[2017-09-14] MEDS ORDERED: INSULIN ASPART SUPPLEMENTAL SCALE SQ SCH (14:00)
[2017-09-14] MEDS ORDERED: DEXTROSE 50% IN WATER 50 ML VIAL(D50) IV PUSH PRN (14:00)
[2017-09-14] MEDS ORDERED: GLUCAGON 1 MG/ML VIAL OTHER PRN (14:00)
[2017-09-14] MEDS ORDERED: hydrALAZINE HCL 20 MG/ML VIAL IV PRN (14:15)
[2017-09-14] MEDS ORDERED: PIPERACIL-TAZO 3.375 GM PREMIX 50 ML IV SCH (15:00)
--- NOTE | 2017-09-14 16:12 | PD.CONS ---
Consult Service Palliative Care Consult Requested By Dr. Watts . Primary Care Physician Dr. Arce . Reason for Consultation a. To assist with evaluation and management of symptoms including: Encephalopathy, dyspnea, anxiety b. To assist medical decision maker(s) with: better understanding of current medical conditions; weighing benefits/burdens of medical treatment options; making medical treatment decisions. HPI History of Present Illness This is an 82-year-old female brought to the emergency department 09/13 by [facility] in cardiac arrest. [facility] had been called for dyspnea which had started about 15-20 minutes prior to their arrival and when they arrived and when they arrived patient was noted to have a GCS of 3, pulse in the 60s. EKG was done by [facility] personnel and was noted to be unremarkable. Oxygen saturation was 82% and the patient went into cardiac arrest, witnessed by [facility]. ACLS protocol was initiated at 22:00. Blood sugar was 85. She had received 2 doses of epinephrine while in route during chest compressions. On arrival to the emergency room she was also a GCS of 3, pupils fixed and dilated and ACLS protocol was continued from [facility] to ED staff. She was intubated at 22: 10. Ultrasound showed no cardiac activity and compressions were continued until ROSC was achieved at 22:22. Chest x-ray confirmed appropriate placement of ET tube and OG tube with mild left mid and upper lung consolidation. Stat labs were obtained showing WBC 7.2, Hgb 4.2, HCT 13.1, platelets 193, sodium 145, potassium 4.9, BUN 43, creatinine 0.8, glucose 115, lactic acid 19.7 , 12.4, troponin 0 0.03, 0.73, B natruretic peptide 251 calcium 8.2, total bilirubin 0.1, AST 58, ALT 38, alkaline phosphatase 47, total creatinine kinase 54, PT 12.7, INR 1.3, APTT 46.3, fibrinogen 283. Arterial blood gas shows pH 6.91, bicarb 8, base excess -22.6, PCO2 40, PO2 490, saturation 96%, hemoglobin 3.3 per ABG, vent settings VOL/AC/RR 20/DVT 500/PEEP 5/FiO2 100%. Urinalysis, sputum culture are pending. Once labs were received, 4 units of emergency blood was released and transfused. Today's hemoglobin is 10.7, hematocrit 32.0. She remains intubated , not sedated on a continuous drip but did receive rocuronium and Versed this morning to establish vent synchrony. She will now opening her eyes intermittently, not following commands. Function/Cognitive Trajectory She has been severely debilitated for some time with chronic pain and has been fairly sedentary. Her significant other has been providing her with assistance with ADLs. He states that he has been seeing some fecal incontinence around the house which he has needed to clean up over the last 2 weeks. . Review of Systems ROS Limitations: Clinical Condition (Patient is nonverbal and unable to provide their own ROS. 10 part ROS taken as best as possible from medical record and available family.), Intubated, Unresponsive Constitutional: COMPLAINS OF: Pain Endocrine: DENIES: Abnorml menstrual pattern, Heat/cold intolerance, Polydipsia , Polyuria, Polyphagia Eyes: DENIES: Blurred vision, Diplopia, Eye inflammation, Eye pain, Vision loss , Photosensitivity, Double Vision, Blind spots Ears, nose, mouth, throat: DENIES: Tinnitus, Hearing loss, Vertigo, Nasal discharge, Oral lesions, Throat pain, Hoarseness, Ear Pain, Running Nose, Epistaxis, Sinus Pain, Toothache, Odynophagia Respiratory: COMPLAINS OF: Shortness of breath Cardiovascular: COMPLAINS OF: Dyspnea on Exertion Gastrointestinal: COMPLAINS OF: Bloody stools, Vomiting blood Genitourinary: DENIES: Abnormal vaginal bleeding, Dysmenorrhea, Dyspareunia, Sexual dysfunction, Urinary frequency, Urinary incontinence, Urgency, Hematuria , Dysuria, Nocturia, Vaginal discharge, Hesitancy, Dribbling, Decreased stream Musculoskeletal: COMPLAINS OF: Joint pain Integumentary: DENIES: Abnormal pigmentation, Pruritus, Rash, Nail changes, Breast masses, Breast skin changes, Nipple discharge, Nodules, Tumors, Excessive dryness, Non-healing sores Hematologic/Lymphatics: DENIES: Bruising, Lymphadenopathy, Prolonged bleed w/ proced, History of transfusions Immunologic/Allergic: DENIES: Eczema, Urticaria Neurologic: DENIES: Abnormal gait, Headache, Localized weakness, Paresthesias, Seizures, Speech Problems, Tremor, Poor Balance, Change in smell or taste Psychiatric: COMPLAINS OF: Anxiety Past Family Social History Coded Allergies: codeine (Unverified Allergy, Severe, 09/13/17) sulfamethoxazole (Unverified Adverse Reaction, Severe, Nausea/Vomiting, ) trimethoprim (Unverified Adverse Reaction, Severe, Nausea/Vomiting, ) Past Medical History Osteoarthritis Anxiety Diabetes mellitus Hyperlipidemia Hypertension Chronic pain History of kidney dysfunction . Past Surgical History Hysterectomy Cervical fusion . Reported Medications Reported Meds & Active Scripts Active Reported Levothyroxine (Levothyroxine Sodium) 25 Mcg Tab 25 Mcg PO DAILY Lisinopril-Hctz 20-25 Mg Tab 1 Tab PO DAILY Alprazolam 1 Mg Tab 1 Mg PO HS Glipizide 5 Mg Tab 2.5 Mg PO BID Take 30 minutes before a meal . Current Medications Medications (Trade) Dose Ordered Sig/Bruce Route Start Time Stop Time Status Last Admin Norepinephrine Bitartrate 4 mg/ Sodium Chloride 250 ml @ 7.5 mls/hr TITRATE PRN IV 09/13/17 23:15 09/14/17 05:50 (Brethine Inj) 1 mg UNSCH PRN SQ 09/13/17 23:15 Octreotide Acetate 500 mcg/ Sodium Chloride 500 ml @ 50 mls/hr Q10H IV 09/13/17 23:57 09/14/17 00:56 Pantoprazole Sodium 80 mg/ Sodium Chloride 100 ml @ 10 mls/hr CONTINUOUS IV 09/14/17 00:00 09/14/17 01:34 Sodium Chloride 250 ml @ 15 mls/hr ONCE ONCE IV 09/14/17 01:15 09/14/17 17:54 09/14/17 03:00 Sodium Chloride 250 ml @ 15 mls/hr ONCE ONCE IV 09/14/17 01:30 09/14/17 18:09 09/14/17 03:00 Sodium Chloride 250 ml @ 15 mls/hr ONCE ONCE IV 09/14/17 01:30 09/14/17 18:09 (NS Flush) 2 ml UNSCH PRN IV FLUSH 09/14/17 02:00 09/14/17 08:39 (NS Flush) 2 ml BID IV FLUSH 09/14/17 09:00 09/14/17 08:38 (Zofran Inj) 4 mg Q6H PRN IV PUSH 09/14/17 02:00 (Duoneb Neb) 1 ampule Q6HR NEB INH 09/14/17 04:00 09/14/17 08:02 (Albuterol Neb) 2.5 mg Q2HR NEB PRN INH 09/14/17 02:00 Miscellaneous Information 1 Q361D XX 09/14/17 02:00 (Chlorhexidine 2% Cloth) 3 pack Taper DAILY@04 TOP 09/14/17 04:00 09/10/18 03:59 09/14/17 04:00 (Chlorhexidine 2% Cloth) 3 pack UNSCH PRN TOP 09/14/17 02:00 (Peridex 0.12% Liq) 15 ml BID@08,20 MT 09/14/17 08:00 09/14/17 08:39 Sodium Bicarbonate 100 meq/Dextrose 1,100 ml @ 120 mls/hr Q9H10M IV 09/14/17 06:00 09/14/17 05:47 (SoluMEDROL INJ) 60 mg Q6H IV PUSH 09/14/17 08:00 09/14/17 08:37 . Family History Both parents in their 80s of natural causes. . Substance Use Tobacco: Smoked 1-1/2 packs per day for most of her life. Alcohol: Social alcohol use. Prescription med abuse: Prescription abuse of OxyContin. Illicits: History of marijuana and cocaine use. . 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 She has been and twice and has 1 daughter, Tamika. 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 She currently lives with her significant other, Shun Arriola. . Spiritual/Cultural Factors She would not wish for paper spooler visits per her significant other Shun. . Living Will: Never completed Health Care Surrogate: Never completed Durable Power of Sign Poster: Never completed Health Care Surrogate(s): Never completed. . Documented care wishes: No living will completed. . Today's verbally stated goals: Patient intubated and unable to participate in conversation. . Family/friends goals: Her significant other Shun wishes for aggressive measures, however he is not the legal decision maker. Patient's daughter, Tamika, would be the designated proxy decision-maker per [place] statutes. . Ethical and Legal Issues None noted. . Physical Exam Vital Signs Date Time Temp Pulse Resp B/P (MAP) Pulse Ox O2 Delivery O2 Flow Rate FiO2 4/16/18 08:00 98.6 129 25 173/89 (117) 100 09/14/17 07:59 100 40 09/14/17 05:50 109 09/14/17 05:45 109 109/88 09/14/17 04:00 100 80 09/14/17 04:00 100 100 09/14/17 04:00 95.2 98 161/88 (112) 09/14/17 03:07 94.3 94 21 138/74 100 09/14/17 03:00 94.3 95 18 137/68 (91) 98 Auto-Vent 09/14/17 02:31 93.7 97 22 106/70 98 09/14/17 02:30 94.0 90 18 106/70 (82) 98 Auto-Vent 09/14/17 02:28 93.7 97 19 106/72 98 09/14/17 02:20 93.6 100 30 147/70 100 09/14/17 02:00 93.4 98 18 140/60 (86) 98 Auto-Vent 09/14/17 01:30 93.2 88 18 142/63 (89) 98 Auto-Vent 09/14/17 01:00 93.2 96 18 124/60 (81) 98 Auto-Vent 09/14/17 00:30 93.0 80 18 100/45 (63) 98 Auto-Vent 09/14/17 00:00 93.0 82 18 122/57 (78) 98 Auto-Vent 09/13/17 23:46 93.0 82 18 115/53 (73) 98 Auto-Vent 09/13/17 23:25 92.8 92 18 105/50 (68) 98 Auto-Vent 09/13/17 23:19 88 100/68 09/13/17 23:10 92.3 90 18 86/44 (58) 98 Auto-Vent 09/13/17 23:05 92.0 88 18 82/38 (53) 98 Auto-Vent 09/13/17 22:55 94.0 88 18 80/34 (49) 98 Auto-Vent 09/13/17 22:54 18 09/13/17 22:52 97 Auto-Vent 09/13/17 22:45 96 18 76/32 (47) 98 Auto-Vent 09/13/17 22:10 100 100 . Exam CONSTITUTIONAL/GENERAL: This is an elderly, cachectic patient, intubated, in no apparent distress. TUBES/LINES/DRAINS: ETT, Ferguson, right femoral central line SKIN: No jaundice, rashes, or lesions. Ecchymoses on upper extremities. No wounds seen anteriorly. Skin temperature appropriate. Not diaphoretic. HEAD: Atraumatic. Normocephalic. EYES: Pupils left 4 mm, right 5 mm, equal and round and sluggishly reactive. No injection or drainage. Fundi not examined. ENT: Nose without bleeding or purulent drainage. NECK: Trachea midline. Intubated. No palpable thyroid enlargement or nodularity. CARDIOVASCULAR: S1, S2, regular rhythm, mildly tachycardic rate, no rub murmur or gallop. RESPIRATORY/CHEST: Mechanically ventilated, no wheezes or rhonchi. GASTROINTESTINAL: Abdomen soft, nondistended. No hepato-splenomegaly, or palpable masses. Bowel sounds absent. GENITOURINARY: Without palpable bladder distension. Ferguson catheter in place. MUSCULOSKELETAL: Extremities without clubbing, cyanosis, or edema. No mottling or clubbing. LYMPHATICS: No palpable cervical or supraclavicular adenopathy. NEUROLOGICAL: Sedated PSYCHIATRIC: Sedated . Diagnostic Tests Laboratory Laboratory Tests Test 09/13/17 22:26 09/13/17 22:45 09/13/17 23:03 09/13/17 23:22 White Blood Count 7.2 TH/MM3 (4.0-11.0) Red Blood Count 1.25 MIL/MM3 (4.00-5.30) Hemoglobin 4.2 GM/DL (11.6-15.3) Bedside Hemoglobin G/DL (11.6-15.3) Hematocrit 13.1 % (35.0-46.0) Bedside Hematocrit LESS THAN 15.0 % (35.0-46.0) Mean Corpuscular Volume 104.9 FL (80.0-100.0) Mean Corpuscular Hemoglobin 33.3 PG (27.0-34.0) Mean Corpuscular Hemoglobin Concent 31.7 % (32.0-36.0) Red Cell Distribution Width 15.7 % (11.6-17.2) Platelet Count 193 TH/MM3 (150-450) Mean Platelet Volume 7.0 FL (7.0-11.0) Neutrophils (%) (Auto) 55.8 % (16.0-70.0) Lymphocytes (%) (Auto) 39.2 % (9.0-44.0) Monocytes (%) (Auto) 3.6 % (0.0-8.0) Eosinophils (%) (Auto) 0.9 % (0.0-4.0) Basophils (%) (Auto) 0.5 % (0.0-2.0) Neutrophils # (Auto) 4.0 TH/MM3 (1.8-7.7) Lymphocytes # (Auto) 2.8 TH/MM3 (1.0-4.8) Monocytes # (Auto) 0.3 TH/MM3 (0-0.9) Eosinophils # (Auto) 0.1 TH/MM3 (0-0.4) Basophils # (Auto) 0.0 TH/MM3 (0-0.2) CBC Comment AUTO DIFF Differential Comment AUTO DIFF CONFIRMED Prothrombin Time 12.7 SEC (9.8-11.6) Prothromb Time International Ratio 1.3 RATIO Activated Partial Thromboplast Time 46.3 SEC (24.3-30.1) Bedside Sodium 145 MMOL/L (137-144) Blood Urea Nitrogen 45 MG/DL (7-18) Creatinine 0.87 MG/DL (0.50-1.00) Random Glucose 115 MG/DL (74-106) Total Protein 3.3 GM/DL (6.4-8.2) Albumin 1.3 GM/DL (3.4-5.0) Calcium Level 8.2 MG/DL (8.5-10.1) Magnesium Level 2.5 MG/DL (1.5-2.5) Alkaline Phosphatase 47 U/L (45-117) Aspartate Amino Transf (AST/SGOT) 58 U/L (15-37) Alanine Aminotransferase (ALT/SGPT) 38 U/L (10-53) Total Bilirubin 0.1 MG/DL (0.2-1.0) Sodium Level 152 MEQ/L (136-145) Potassium Level 5.2 MEQ/L (3.5-5.1) Chloride Level 110 MEQ/L (98-107) Carbon Dioxide Level 18.5 MEQ/L (21.0-32.0) Bedside Potassium 4.9 MMOL/L (3.6-5.0) Bedside Chloride 106 MMOL/L (102-111) Anion Gap 24 MEQ/L (5-15) Bedside Blood Urea Nitrogen 43 MG/DL (5-21) Bedside Creatinine 0.8 MG/DL (0.6-1.3) Estimat Glomerular Filtration Rate 62 ML/MIN (>89) Bedside Glucose 115 MG/DL (68-110) Total Creatine Kinase 54 U/L (26-192) Troponin I 0.03 NG/ML (0.02-0.05) B-Type Natriuretic Peptide 251 PG/ML (0-100) Lactic Acid Level 19.7 mmol/L (0.4-2.0) Blood Gas Puncture Site LT RADIAL Blood Gas Patient Temperature 98.6 Blood Gas HCO3 8 mmol/L (22-26) Blood Gas Base Excess -22.6 mmol/L (-2-2) Blood Gas Oxygen Saturation 96 % (90-100) Arterial Blood pH 6.91 (7.380-7.420) Arterial Blood Partial Pressure CO2 40 mmHg (38-42) Arterial Blood Partial Pressure O2 490 mmHG (61-120) Arterial Blood Oxygen Content 5.9 Vol % (12.0-20.0) Arterial Blood Carboxyhemoglobin 0.2 % (0-4) Arterial Blood Methemoglobin 1.6 % (0-2) Blood Gas Hemoglobin 3.3 G/DL (12.0-16.0) Oxygen Delivery Device VENTILATOR Blood Gas Ventilator Setting SEE COMMENT Blood Gas Inspired Oxygen 100 % Test 09/14/17 03:26 09/14/17 03:30 09/14/17 04:20 09/14/17 04:30 Fibrinogen 283 mg/dL (227-377) Hemoglobin 10.7 GM/DL (11.6-15.3) Hematocrit 32.0 % (35.0-46.0) Blood Gas Puncture Site CENTRAL LINE Blood Gas Patient Temperature 98.6 Venous Blood pH 6.98 (7.360-7.400) Venous Blood Partial Pressure CO2 59 mmHg (44-48) Venous Blood Partial Pressure O2 58 mmHg (35-40) Venous Blood HCO3 13 mmol/L (22-26) Venous Blood Oxygen Saturation 83 % (70-76) Venous Blood Oxygen Content 12.7 Vol % (9.0-17.0) Venous Blood Base Excess -16.3 mmol/L (-2-2) Oxygen Delivery Device VENTILATOR Blood Gas Ventilator Setting 20/500/5PEEP Blood Gas Inspired Oxygen 80 % Test 09/14/17 04:42 09/14/17 07:40 09/14/17 10:55 Prothrombin Time 13.6 SEC (9.8-11.6) Prothromb Time International Ratio 1.3 RATIO Activated Partial Thromboplast Time 36.6 SEC (24.3-30.1) Lactic Acid Level 12.4 mmol/L (0.4-2.0) Troponin I 0.73 NG/ML (0.02-0.05) Blood Gas Puncture Site LT RADIAL Blood Gas Patient Temperature 98.6 Blood Gas HCO3 15 mmol/L (22-26) Blood Gas Base Excess -11.8 mmol/L (-2-2) Blood Gas Oxygen Saturation 97 % (90-100) Arterial Blood pH 7.16 (7.380-7.420) Arterial Blood Partial Pressure CO2 45 mmHg (38-42) Arterial Blood Partial Pressure O2 341 mmHg (61-120) Arterial Blood Oxygen Content 15.9 Vol % (12.0-20.0) Arterial Blood Carboxyhemoglobin 0.4 % (0-4) Arterial Blood Methemoglobin 2.0 % (0-2) Blood Gas Hemoglobin 11.1 G/DL (12.0-16.0) Oxygen Delivery Device VENTILATOR Blood Gas Ventilator Setting Blood Gas Inspired Oxygen 60 % . Result Diagram: 09/14/17 0420 09/13/172225 Microbiology Microbiology Date/Time Source Procedure Growth Status 09/14/17 02:20 Sputum Endotracheal Gram Stain Pending Received 09/14/17 02:20 Sputum Endotracheal Sputum Culture Pending Received Imaging Last Impressions Chest X-Ray 09/13/172225 Signed Impressions: Service Date/Time: Wednesday, September 13, 2017 23:12 - CONCLUSION: Mild left mid and upper lung consolidation. Lungs otherwise clear. Appropriate position of the endotracheal tube and nasogastric tube. Amrit Ansari MD . Procedures 09/13: Intubation on 09/13 cardiac ultrasound during cardiac arrest 09/13 right femoral vein central line . Patient/Family Conference Present at Family Conference: Spoke with son-in-law, Drew, daughter, Tamika by telephone and significant other , Shun Ramsey at the bedside. Updated them as to the clinical course, status and prognosis. As Tamika is the decision-maker care decisions were deferred to her. She stated that her mother had sent her a letter recently stating that she wanted nothing heroic or extraordinary done for medical measures and her that letter, Tamika has decided to make her mother a DO NOT RESUSCITATE status and proceed with withdrawal of support via compassionate extubation. Exhibits have been emailed to Tamika as she is in [place] at this time with little access to office equipment. . . Family Conference Time (mins): 37 Family Conference Location: Bedside, Telephone Issues Discussed: * Palliative care role, purpose, approach * Additional medical, psychosocial, and spiritual history * Patients general health, functional status, and cognitive changes in the months leading up to the current hospitalization * Patient/family understanding of the current medical problems * Patient/family understanding of prognosis * Patients goals of care as best understood from advance directives and/or conversations and/or values * Current medical treatment options and benefits/burdens of those options * Likely scenarios comparing ongoing aggressive care with a transition to comfort measures only * Questions answered to the best of my ability * Palliative care contact information provided Assessment and Plan Disease Oriented Problem List: (1) Chronic left hip pain (2) GI bleed (3) Cardiopulmonary arrest with successful resuscitation Symptom Scale: (1) Anxiety 0-10 Scale: Unable to quantify (Intubated, unresponsive) (2) Dyspnea 0-10 Scale: Unable to quantify (3) Encephalopathy 0-10 Scale: Unable to quantify (Intubated, unresponsive) Pertinent Non-Medical Issues Psychosocial:She was 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 She has been and twice and has 1 daughter, Tamika. 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 She currently lives with her significant other, Shun Arriola. Spiritual: Not an important concept to the patient. Legal: No legal issues identified. Ethical issues impacting care: No ethical issues identified. . Important Contacts Daughter: Tamika Casey (only able to accept text messages at this time. She is in [place]) Son-in-law: Drew Casey Significant other: Shun Ramsey . Prognosis Her prognosis is poor. She is of advanced age with a long history of tobacco use and declining functional status. She has had an acute GI bleed and suffered cardiac arrest with an extended cardiopulmonary resuscitation course of 22 minutes with a hemoglobin of 4.2, making an anoxic injury a significant concern. She had recently written a letter to her daughter stating that she did not wish to undergo extraordinary measures for resuscitation and per those wishes the daughter is requesting a withdrawal of life support and compassionate extubation. . Code Status: No Code Plan PLAN: Legal decision maker: Per [place] statutes, her daughter Tamika, as the only child, would be her legal healthcare proxy decision-maker. She is . Goals: Comfort oriented. CODE STATUS: DNR SYMPTOMS: * Anxiety: She has a baseline history of anxiety which will likely be exacerbated by mechanical ventilation, acute bleed and dyspnea. At this time she is exhibiting no anxiety but will need close clinical monitoring as patient is unable to make her needs known. * Dyspnea: She has a very long smoking history and has undergone extensive CPR with subsequent intubation. Compassionate withdrawal is planned once consent received from the daughter and will be managed with benzodiazepines and opiates per vent withdrawal protocol. * Encephalopathy: Multifactorial, secondary to extended cardiopulmonary resuscitation efforts of 22 minutes. During that time her hemoglobin was 4.2 and may have sustained and anoxic brain injury. She also has a long history of polysubstance abuse and her significant other notes a baseline of cognitive and functional decline. SUMMARY This is an 82-year-old female who suffered a witnessed cardiac arrest requiring an extended cardiopulmonary resuscitation of 22 minutes. She also has a gastrointestinal bleed and presented with significant anemia of acute bleed with hemoglobin 4.2. Given the low blood volume and the extended cardiopulmonary resuscitation time it is likely that some level of anoxic/ hypoxic brain injury was sustained. Her daughter states she had recently received a letter from her mother stating that she did not wish for any heroic efforts for resuscitation and in line with those wishes, daughter is requesting compassionate vent withdrawal. This has been discussed with both Dr. Del Valle and Dr. Marcus, who is the patient's attending physician and both agree that her condition is likely terminal and have signed exhibits. Palliative care will continue to follow the patient during hospital course as condition evolves, to assist patient/decision-maker with understanding of their medical conditions, weighing benefits/burdens of treatment options, for clarification of goals of treatment. Additionally will assist with any symptoms of palliative concern. . Time Spent Time Periods: 11: 16-11:53 Total Floor Time (mins): 70 Face to Face Time (mins): 37 >50% Counseling/Coord of Care: Yes Thank you for the opportunity to participate in the care of Ms. Gutierrez. Attestation To help prompt me to consider important information that might be impacting today's encounter and assessment, information from prior notes written by myself or my colleagues may have been "brought forward" into today's note. My signature on this note, however, is an attestation that I personally performed the exam, history, and/or decision-making noted today, and, unless otherwise indicated, the interactions with patient, family, and staff as well as the review of records all occurred today. I also attest that the listed assessment and stated plan reflect my best clinical judgment today based on the combination of historical information, prior notes, and today's exam/ interactions. When time spent is documented, it refers only to time spent today by the signer, or if indicated, combined time spent today by collaborating physician/nurse practitioner. . eBth Briones Sep 14, 2017 12:35
--- NOTE | 2017-09-14 17:13 | EKG ---
Date Performed: 09/14/2017 Time Performed: 08:48:03 PTAGE: 82 years EKG: SINUS TACHYCARDIA NONSPECIFIC ST & T-WAVE ABNORMALITY Since the previous tracing, no signif icant change noted ABNORMAL ECG PREVIOUS TRACING : 02/17/2012 11.17 DOCTOR: Shun Ibrahim Interpretating Date/Time 09/14/2017 17:11:09
[2017-09-14] MEDS ORDERED: MORPHINE SULFATE 8 MG/ML INJ IV PUSH ONE (17:30)
[2017-09-14] MEDS ORDERED: HYOSCYAMINE 0.5 MG/ML AMP IV PUSH ONE (17:30)
[2017-09-14] MEDS ORDERED: LORazepam 2 MG/ML VIAL IV PUSH ONE ×2 (17:30→18:00)
[2017-09-14] MEDS ORDERED: HYOSCYAMINE 0.5 MG/ML AMP IV PUSH PRN (18:00)
[2017-09-14] MEDS ORDERED: BISACODYL 10 MG SUPP RECTAL PRN (18:00)
[2017-09-14] MEDS ORDERED: LORazepam 2 MG/ML VIAL IV PUSH PRN ×3 (18:00)
[2017-09-14] MEDS ORDERED: FUROSEMIDE 20 MG/2 ML VIAL IV PUSH PRN (18:00)
[2017-09-14] MEDS ORDERED: MORPHINE SULFATE 4 MG/ML INJ IV PUSH PRN (18:00)
[2017-09-14] MEDS ORDERED: MORPHINE SULFATE 4 MG/ML INJ IV PUSH ONE (18:00)
[2017-09-14] MEDS ORDERED: MORPHINE SULFATE 8 MG/ML INJ IV PUSH PRN (18:00)
[2017-09-14] MEDS ORDERED: ACETAMINOPHEN 650 MG SUPP RECTAL PRN (18:00)
[2017-09-14] MEDS ORDERED: MORPHINE SULFATE 4 MG/ML INJ IV PUSH SCH (20:00)
[2017-09-14] MEDS ORDERED: LORazepam 2 MG/ML VIAL IV PUSH SCH (20:00)
--- NOTE | 2017-09-15 06:31 | DEATH SUM ---
Summary Demographics Date Pronounced : Sep 14, 2017 Time Of : 1858 Pronounced By: Dr. Dominguez Preliminary Cause of : Multi Organ Failure Cuong Marcus MD Sep 15, 2017 06:31
--- NOTE | 2017-09-15 06:40 | HHI.DS ---
Summary Note Date of : Sep 14, 2017 Time Of : 1859 Admission Date Sep 13, 2017 at 23:44 Admitting Diagnosis PostCode, GI Bleed Diagnosis at Time of : (1) Acute kidney failure ICD Code: N17.9 - Acute kidney failure, unspecified Diagnosis: Principal (2) Pneumonia ICD Code: J18.9 - Pneumonia, unspecified organism Diagnosis: Principal (3) GIB (gastrointestinal bleeding) ICD Code: K92.2 - Gastrointestinal hemorrhage, unspecified Diagnosis: Principal (4) Hemorrhagic shock ICD Code: R57.8 - Other shock Diagnosis: Principal (5) Anoxic brain injury ICD Code: G93.1 - Anoxic brain damage, not elsewhere classified Diagnosis: Principal (6) PEA (Pulseless electrical activity) ICD Code: I46.9 - Cardiac arrest, cause unspecified Diagnosis: Principal (7) Acute hypoxemic respiratory failure ICD Code: J96.01 - Acute respiratory failure with hypoxia Diagnosis: Principal (8) Metabolic acidosis ICD Code: E87.2 - Acidosis Diagnosis: Principal Brief History 82-year-old female with past medical history of diabetes, hypertension , hypothyroidism, chronic pain who presented to [facility] emergency department with PEA cardiac arrest. EVAC was summoned for decreased mental status and shortness of breath. When they arrived patient had GCS of 3 and pulse in the 60s. Subsequently the patient had PEA cardiac arrest. She received epinephrine 2 per EVAC. ACLS was continued upon arrival. Patient's pupils were fixed and dilated. Patient was intubated. There was ROSC after roughly 20 minutes of CPR. Hemoglobin was 3.3. She received 4 units of emergency release blood and right femoral central venous line was placed. Lactic acid was 19. PH was 6.9. OG tube was inserted and she had large amount of dark bloody output. There were also bloody secretions in the endotracheal tube. CBC/BMP: 09/14/17 1055 09/13/17 2226 Significant Findings Laboratory Tests Test 09/13/17 22:26 09/13/17 22:45 09/13/17 23:03 09/14/17 03:26 Red Blood Count 1.25 MIL/MM3 (4.00-5.30) Hemoglobin 4.2 GM/DL (11.6-15.3) Hematocrit 13.1 % (35.0-46.0) Bedside Hematocrit LESS THAN 15.0 % (35.0-46.0) Mean Corpuscular Volume 104.9 FL (80.0-100.0) Mean Corpuscular Hemoglobin Concent 31.7 % (32.0-36.0) Prothrombin Time 12.7 SEC (9.8-11.6) Activated Partial Thromboplast Time 46.3 SEC (24.3-30.1) Bedside Sodium 145 MMOL/L (137-144) Blood Urea Nitrogen 45 MG/DL (7-18) Random Glucose 115 MG/DL (74-106) Total Protein 3.3 GM/DL (6.4-8.2) Albumin 1.3 GM/DL (3.4-5.0) Calcium Level 8.2 MG/DL (8.5-10.1) Aspartate Amino Transf (AST/SGOT) 58 U/L (15-37) Total Bilirubin 0.1 MG/DL (0.2-1.0) Sodium Level 152 MEQ/L (136-145) Potassium Level 5.2 MEQ/L (3.5-5.1) Chloride Level 110 MEQ/L (98-107) Carbon Dioxide Level 18.5 MEQ/L (21.0-32.0) Anion Gap 24 MEQ/L (5-15) Bedside Blood Urea Nitrogen 43 MG/DL (5-21) Estimat Glomerular Filtration Rate 62 ML/MIN (>89) Bedside Glucose 115 MG/DL (68-110) B-Type Natriuretic Peptide 251 PG/ML (0-100) Lactic Acid Level 19.7 mmol/L (0.4-2.0) Blood Gas HCO3 8 mmol/L (22-26) Blood Gas Base Excess -22.6 mmol/L (-2-2) Arterial Blood pH 6.91 (7.380-7.420) Arterial Blood Partial Pressure O2 490 mmHG (61-120) Arterial Blood Oxygen Content 5.9 Vol % (12.0-20.0) Blood Gas Hemoglobin 3.3 G/DL (12.0-16.0) Test 09/14/17 03:30 09/14/17 04:20 09/14/17 04:30 09/14/17 04:42 Hemoglobin 10.7 GM/DL (11.6-15.3) Hematocrit 32.0 % (35.0-46.0) Venous Blood pH 6.98 (7.360-7.400) Venous Blood Partial Pressure CO2 59 mmHg (44-48) Venous Blood Partial Pressure O2 58 mmHg (35-40) Venous Blood HCO3 13 mmol/L (22-26) Venous Blood Oxygen Saturation 83 % (70-76) Venous Blood Base Excess -16.3 mmol/L (-2-2) Prothrombin Time 13.6 SEC (9.8-11.6) Activated Partial Thromboplast Time 36.6 SEC (24.3-30.1) Lactic Acid Level 12.4 mmol/L (0.4-2.0) Troponin I 0.73 NG/ML (0.02-0.05) Test 09/14/17 07:40 09/14/17 10:55 Blood Gas HCO3 15 mmol/L (22-26) Blood Gas Base Excess -11.8 mmol/L (-2-2) Arterial Blood pH 7.16 (7.380-7.420) Arterial Blood Partial Pressure CO2 45 mmHg (38-42) Arterial Blood Partial Pressure O2 341 mmHg (61-120) Blood Gas Hemoglobin 11.1 G/DL (12.0-16.0) White Blood Count 12.6 TH/MM3 (4.0-11.0) Red Blood Count 3.57 MIL/MM3 (4.00-5.30) Hemoglobin 10.9 GM/DL (11.6-15.3) Hematocrit 31.6 % (35.0-46.0) Neutrophils (%) (Auto) 92.9 % (16.0-70.0) Lymphocytes (%) (Auto) 4.6 % (9.0-44.0) Neutrophils # (Auto) 11.7 TH/MM3 (1.8-7.7) Lymphocytes # (Auto) 0.6 TH/MM3 (1.0-4.8) Lactic Acid Level 14.9 mmol/L (0.4-2.0) Troponin I 1.88 NG/ML (0.02-0.05) Imaging Abdominal US: Gallstones without common duct 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 Nonobstructing stone lower pole left kidney. CXR: L lung pneumonia Hospital Course 82-year-old female admitted after with PEA cardiac arrest. EVAC was summoned for decreased mental status and shortness of breath. When they arrived patient had GCS of 3 and pulse in the 60s. Subsequently the patient had PEA cardiac arrest. She received epinephrine 2 per EVAC. ACLS was continued upon arrival. Patient's pupils were fixed and dilated. Patient was intubated. There was ROSC after roughly 20 minutes of CPR. Hemoglobin was 3.3. She received 4 units of emergency release blood and right femoral central venous line was placed. Lactic acid was 19. PH was 6.9. OG tube was inserted and she had large amount of dark bloody output. There were also bloody secretions in the endotracheal tube. Patient continued to be unstable persistently acidotic, with very poor chance of meaningful recovery. Patient's daughter Tamika opted for compassionate withdrawal and comfort measures. Patient at 1859 on 09/14/17 Cuong Marcus MD Sep 15, 2017 06:40
== END 2017-09-14 18:59 | disposition expired | DRG 208 ==
LOC: NEPC 22:05 → NEDA 23:44 → HIME 09-14 03:30
PROVIDERS: ADMIT Emergency Medicine; ATTEND Emergency Medicine
PROC: 5A1935Z Respiratory Ventilation, Less than 24 Consecutive Hours (ICD-10-PCS; principal; 2017-09-13)
PROC: 02HV33Z Insertion of Infusion Device into Superior Vena Cava, Percutaneous Approach (ICD-10-PCS; 2017-09-13)
PROC: 0BH17EZ Insertion of Endotracheal Airway into Trachea, Via Natural or Artificial Opening (ICD-10-PCS; 2017-09-13)
PROC: 30233N1 Transfusion of Nonautologous Red Blood Cells into Peripheral Vein, Percutaneous Approach (ICD-10-PCS; 2017-09-13)
PROC: 30233R1 Transfusion of Nonautologous Platelets into Peripheral Vein, Percutaneous Approach (ICD-10-PCS; 2017-09-14)
PROC: 30233K1 Transfusion of Nonautologous Frozen Plasma into Peripheral Vein, Percutaneous Approach (ICD-10-PCS; 2017-09-14)
DX: J96.01 Acute respiratory failure with hypoxia (principal); I46.9 Cardiac arrest, cause unspecified; R57.8 Other shock; J18.9 Pneumonia, unspecified organism; N17.9 Acute kidney failure, unspecified; G93.1 Anoxic brain damage, not elsewhere classified; J44.0 Chronic obstructive pulmonary disease with (acute) lower respiratory infection; K92.2 Gastrointestinal hemorrhage, unspecified; R64 Cachexia; Z68.1 Body mass index [BMI] 19.9 or less, adult; D62 Acute posthemorrhagic anemia; E87.2 Acidosis; R40.2432 Glasgow coma scale score 3-8, at arrival to emergency department; E11.9 Type 2 diabetes mellitus without complications; I10 Essential (primary) hypertension; G89.29 Other chronic pain; F41.9 Anxiety disorder, unspecified; E78.5 Hyperlipidemia, unspecified; E03.9 Hypothyroidism, unspecified; M54.5 Low back pain; M19.90 Unspecified osteoarthritis, unspecified site; F17.210 Nicotine dependence, cigarettes, uncomplicated; I71.4 Abdominal aortic aneurysm, without rupture; R15.9 Full incontinence of feces; F11.10 Opioid abuse, uncomplicated; Z51.5 Encounter for palliative care; Z98.1 Arthrodesis status; Z66 Do not resuscitate
CPT/HCPCS: 36430; 36600; 71045; 76700; 80048; 80053; 81001; 82550; 82805; 83605; 83735; 83880; 84484; 85014; 85018; 85025; 85384; 85610; 85730; 86403; 86850; 86900; 86901; 86920; 86927; 87070; 87205; 87641; 93005; 94002; 94003; 94640; 94664; C9113; J2250; J2354; J2543; J2930; J3430; J7030; J7040; J7050; J7070; P9016; P9017; P9035